=== PATIENT | male | born 1995 | race Caucasian/White ===

== ENCOUNTER 2018-07-25 15:01 | Emergency (ER) | payer OTHER ==
[~2018-07-25] VITALS: Ht 185.4 cm; Wt 74.5 kg
[2018-07-25 15:38] LABS: ALANINE AMINOTRANSFERASE 32 U/L (12-78); ALBUMIN 4.9 g/dL (3.4-5.0); ANION GAP 12 mmol/L (5-15); CALCIUM 9.5 mg/dL (8.5-10.1); CHLORIDE 105 mmol/L (98-107); CREATININE 1.12 mg/dL (0.7-1.3)
[2018-07-25 15:40] LABS: ALKALINE PHOSPHATASE 75 U/L (45-117); BILIRUBIN,TOTAL 1.4 mg/dL (0.2-1.0); TOTAL PROTEIN 8.1 g/dL (6.4-8.2)
[2018-07-25 16:03] LABS: MEAN CORPUSCULAR HEMOGLOBIN 33.2 pg (27.5-34.5); MEAN CORPUSCULAR HGB CONC 35.5 g/dL (33.2-36.2); MEAN CORPUSCULAR VOLUME 93.4 fL (81-97); MEAN PLATELET VOLUME 8.5 fL (7.4-10.4); PLATELET COUNT 358 x10^3/uL (130-400); RED BLOOD COUNT 5.13 x10^6/uL (4.38-5.82)
[2018-07-25 16:28] LABS: MD YES
[2018-07-25 16:29] LABS: BAND#(MANUAL) 0.41 x10^3/uL; BANDS%(MANUAL) 2 % (0-7); LYMPH#(MANUAL) 0.41 x10^3/uL (1-3.4); LYMPHS% (MANUAL) 2 % (22-44); MONOS#(MANUAL) 0.61 x10^3/uL (0.3-2.7); MONOS% (MANUAL) 3 % (2-9); SEG#(MANUAL) 18.88 x10^3/uL (1.8-6.8); SEGS% (MANUAL) 93 % (42-75)
[2018-07-25 16:30] LABS: <PLATELET ESTIMATE> ADEQUATE; <PLT MORPHOLOGY> NORMAL PLT MORPH; <RBC MORPHOLOGY> NORMAL
[2018-07-25] MEDS ORDERED: DEXT5TAB17 PO (16:31)
[2018-07-25] MEDS ORDERED: ONDANSETRON 2MG/ML, 2ML ONE (16:46)
[2018-07-25] MEDS ORDERED: ONDANSETRON 2MG/ML, 2ML IVPush ONE (17:00)
[2018-07-25] MEDS ORDERED: SODIUM CHLORIDE 0.9% 1,000ML IVBOLUS ONE (17:00)
[2018-07-25] MEDS ORDERED: SODIUM CHLORIDE FLUSH 10ML SYR IVF ONE (17:00)
[2018-07-25 17:35] LABS: MICROSCOPIC NOT IND
[2018-07-25 17:36] LABS: CULTURE INDICATED? NO
[2018-07-25 18:20] VITALS: BP 115/68
== END 2018-07-25 18:22 | disposition home or self-care (01) ==
LOC: ED 18:15
DX: R10.9 Unspecified abdominal pain (principal); R11.2 Nausea with vomiting, unspecified
CPT/HCPCS: 36415; 80053; 81003; 83690; 85025; 96361; 96374; 99283; J2405; J7030